=== PATIENT | male | born 1960 | race Two or more races ===

== ENCOUNTER 2018-07-14 10:40 | Inpatient (IN) | payer BC, MEDICAID ==
[~2018-07-14] VITALS: Ht 175.3 cm; Wt 103.9 kg
--- NOTE | 2018-07-14 11:21 | NUR ---
COMPOSITE TECHNICIAN: CALLED FOR ROOM, NO ANSWER.
--- NOTE | 2018-07-14 11:31 | NUR ---
SUPERVISOR MACHINING: PT TO ROOM FROM LOBBY.
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
[2018-07-14 11:58] LABS: MEAN CORPUSCULAR HEMOGLOBIN 31.4 pg (27.5-34.5); MEAN CORPUSCULAR HGB CONC 33.8 g/dL (33.2-36.2); MEAN CORPUSCULAR VOLUME 92.9 fL (81-97); MEAN PLATELET VOLUME 8.1 fL (7.4-10.4); PLATELET COUNT 160 x10^3/uL (130-400); RED BLOOD COUNT 4.38 x10^6/uL (4.38-5.82); RED CELL DISTRIBUTION WIDTH 13.1 % (9.4-14.8)
[2018-07-14] MEDS ORDERED: LISI40TA PO (11:59)
[2018-07-14] MEDS ORDERED: ASPI-515 PO (11:59)
[2018-07-14] MEDS ORDERED: CLINDAMYCIN PMX 600MG/50ML 50 ML IV ONE (12:00)
[2018-07-14 12:07] LABS: ALBUMIN 3.1 g/dL (3.4-5.0); ANION GAP 6 mmol/L (5-15); CALCIUM 8.3 mg/dL (8.5-10.1); CHLORIDE 107 mmol/L (98-107); CREATININE 1.08 mg/dL (0.7-1.3)
[2018-07-14] MEDS ORDERED: ACETAMINOPHEN 500 MG TABLET ONE (12:07)
[2018-07-14] MEDS ORDERED: CLINDAMYCIN PMX 600MG/50ML 50 ML ONE (12:07)
[2018-07-14 12:28] LABS: BASOPHILS # (AUTO) 0.01 x10^3/uL (0-0.1); BASOPHILS % (AUTO) 0 % (0-1); EOSINOPHILS # (AUTO) 0.04 x10^3/uL (0-0.4); EOSINOPHILS % (AUTO) 0 % (1-7); LYMPHOCYTES # (AUTO) 0.68 x10^3/uL (1-3.4); LYMPHOCYTES % (AUTO) 5 % (22-44); MD SCAN; MONOCYTES # (AUTO) 0.85 x10^3/uL (0.2-0.8); MONOCYTES % (AUTO) 7 % (2-9); NEUTROPHILS # (AUTO) 11.26 x10^3/uL (1.8-6.8); NEUTROPHILS % (AUTO) 88 % (42-75)
[2018-07-14] MEDS ORDERED: ACETAMINOPHEN 500 MG TABLET PO ONE (12:30)
[2018-07-14] MEDS ORDERED: SODIUM CHLORIDE FLUSH 10ML SYR IVF ONE (12:30)
[2018-07-14] MEDS ORDERED: SODIUM CHLORIDE 0.9% 1,000ML IVBOLUS ONE (12:30)
--- NOTE | 2018-07-14 12:41 | NUR ---
task rn: iv antx initiated after bc x 2 drawn.
[2018-07-14] MEDS ORDERED: KETOROLAC 30 MG/1 ML IV PRN (14:00)
[2018-07-14] MEDS ORDERED: ACETAMINOPHEN 325 MG TABLET PO PRN (14:00)
[2018-07-14] MEDS ORDERED: ONDANSETRON 2MG/ML, 2ML IVPush PRN (14:00)
[2018-07-14] MEDS ORDERED: morphine SULFATE 10 MG/ML, 1ML IVPush PRN (14:00)
[2018-07-14] MEDS ORDERED: hydrALAzine 20 MG/ML, 1ML IVPush PRN (14:00)
[2018-07-14] MEDS ORDERED: TEMAZEPAM 15 MG CAPSULE PO PRN (14:00)
[2018-07-14 14:37] LABS: HCT (SEDRATE) 40.6 % (39.2-51.8)
[2018-07-14 15:19] VITALS: BP 119/74
[2018-07-14 15:45] LABS: HEMOGLOBIN A1C 5.5 % (4.2-6.3)
[2018-07-14] MEDS: SODIUM CHLORIDE 0.9% 1,000 ML IV SCH (16:53)
[2018-07-14] MEDS: LINEZOLID PMX 600MG/300ML 300 ML IV SCH (16:53)
[2018-07-14] MEDS: ENOXAPARIN 40 MG/0.4 ML SQ SCH (16:54)
[2018-07-14 18:04] VITALS: BP 130/81
[2018-07-15 00:02] VITALS: BP 123/77
[2018-07-15] MEDS: SODIUM CHLORIDE 0.9% 1,000 ML IV SCH ×3 (02:09→17:21)
[2018-07-15 04:27] LABS: BASOPHILS % (AUTO) 1 % (0-1); EOSINOPHILS # (AUTO) 0.33 x10^3/uL (0-0.4); EOSINOPHILS % (AUTO) 3 % (1-7); LYMPHOCYTES # (AUTO) 1.31 x10^3/uL (1-3.4); LYMPHOCYTES % (AUTO) 11 % (22-44); MD NO; MEAN CORPUSCULAR HEMOGLOBIN 31.7 pg (27.5-34.5); MEAN CORPUSCULAR HGB CONC 33.8 g/dL (33.2-36.2); MEAN CORPUSCULAR VOLUME 93.9 fL (81-97); MONOCYTES # (AUTO) 1.06 x10^3/uL (0.2-0.8); MONOCYTES % (AUTO) 9 % (2-9); NEUTROPHILS # (AUTO) 8.74 x10^3/uL (1.8-6.8); NEUTROPHILS % (AUTO) 76 % (42-75); PLATELET COUNT 148 x10^3/uL (130-400); RED BLOOD COUNT 3.94 x10^6/uL (4.38-5.82); RED CELL DISTRIBUTION WIDTH 13.3 % (9.4-14.8)
[2018-07-15 04:29] LABS: ALANINE AMINOTRANSFERASE 17 U/L (12-78); ALBUMIN 2.6 g/dL (3.4-5.0); ANION GAP 5 mmol/L (5-15); CALCIUM 7.9 mg/dL (8.5-10.1); CHLORIDE 111 mmol/L (98-107)
[2018-07-15 04:32] LABS: ALKALINE PHOSPHATASE 62 U/L (45-117); BILIRUBIN,TOTAL 0.9 mg/dL (0.2-1.0); CREATININE 0.96 mg/dL (0.7-1.3); TOTAL PROTEIN 5.8 g/dL (6.4-8.2)
[2018-07-15] MEDS: LINEZOLID PMX 600MG/300ML 300 ML IV SCH ×2 (04:56→17:21)
[2018-07-15 06:45] VITALS: BP 125/80
[2018-07-15] MEDS: LISINOPRIL 20 MG TABLET PO SCH (08:23)
[2018-07-15 12:55] VITALS: BP 141/77
[2018-07-15] MEDS: ENOXAPARIN 40 MG/0.4 ML SQ SCH (17:21)
[2018-07-15 18:29] VITALS: BP 120/71
[2018-07-16] VITALS: BP 131/80
[2018-07-16] MEDS: SODIUM CHLORIDE 0.9% 1,000 ML IV SCH ×3 (01:12→14:50)
[2018-07-16] MEDS: LINEZOLID PMX 600MG/300ML 300 ML IV SCH ×2 (04:47→15:42)
[2018-07-16 06:04] VITALS: BP 133/86
[2018-07-16] MEDS: LISINOPRIL 20 MG TABLET PO SCH (08:15)
[2018-07-16] MEDS ORDERED: POTASSIUM PHOSPHATE 44 MEQ in SODIUM CHLORIDE 0.9% 500 ML IV ONE (09:30)
[2018-07-16] MEDS ORDERED: LINE600T37 PO (12:59)
[2018-07-16 13:15] VITALS: BP 153/82
[2018-07-16 16:01] LABS: BASOPHILS # (AUTO) 0.06 x10^3/uL (0-0.1); BASOPHILS % (AUTO) 1 % (0-1); EOSINOPHILS % (AUTO) 10 % (1-7); LYMPHOCYTES # (AUTO) 1.46 x10^3/uL (1-3.4); LYMPHOCYTES % (AUTO) 24 % (22-44); MD NO; MEAN CORPUSCULAR HEMOGLOBIN 31.7 pg (27.5-34.5); MEAN CORPUSCULAR HGB CONC 34.1 g/dL (33.2-36.2); MEAN CORPUSCULAR VOLUME 93.1 fL (81-97); MEAN PLATELET VOLUME 8.4 fL (7.4-10.4); MONOCYTES # (AUTO) 0.73 x10^3/uL (0.2-0.8); MONOCYTES % (AUTO) 12 % (2-9); NEUTROPHILS # (AUTO) 3.27 x10^3/uL (1.8-6.8); NEUTROPHILS % (AUTO) 53 % (42-75); PLATELET COUNT 161 x10^3/uL (130-400); RED BLOOD COUNT 3.96 x10^6/uL (4.38-5.82); RED CELL DISTRIBUTION WIDTH 12.9 % (9.4-14.8)
[2018-07-16] MEDS: ENOXAPARIN 40 MG/0.4 ML SQ SCH (17:00)
== END 2018-07-16 19:00 | disposition home or self-care (01) | DRG 872 ==
LOC: SUATTDRO 13:27 → ED 13:39 → EDIP 13:40 → ED 13:59 → 3NW 14:44
PROVIDERS: ADMIT Internal Medicine; ATTEND Internal Medicine
DX: A41.9 Sepsis, unspecified organism (principal); L03.115 Cellulitis of right lower limb; E66.9 Obesity, unspecified; I10 Essential (primary) hypertension; S80.861A Insect bite (nonvenomous), right lower leg, initial encounter; W57.XXXA Bitten or stung by nonvenomous insect and other nonvenomous arthropods, initial encounter; Z96.652 Presence of left artificial knee joint; Z88.0 Allergy status to penicillin; Z68.33 Body mass index [BMI] 33.0-33.9, adult; Z87.891 Personal history of nicotine dependence
CPT/HCPCS: 36415; 80048; 80053; 82040; 83036; 83605; 83735; 84100; 84145; 85025; 85651; 86140; 87040; 96365; G0378; J1650; J2020; J7030; J7040